=== PATIENT | male | born 1990 | race Caucasian/White ===

== ENCOUNTER → 2016-07-23 | Outpatient (CLI) | payer BC ==
[~2016-07-23] MED LIST: HYDR-971 PO; SULF1TAB24 PO
== END | disposition home or self-care (01) ==
LOC: PMGWOUND 13:50
PROVIDERS: ATTEND Preventive Medicine Undersea and Hyperbaric Medicine
DX: L97.811 Non-pressure chronic ulcer of other part of right lower leg limited to breakdown of skin (principal)
CPT/HCPCS: 99214

== ENCOUNTER → 2016-07-30 | Outpatient (CLI) | payer BC ==
--- NOTE | 2016-07-30 12:59 | RAD ---
Indication trauma. Injury. Pain. AP and lateral views of the right tibia and fibula were obtained. No bony abnormality is seen
== END | disposition home or self-care (01) ==
LOC: RAD 12:15
PROVIDERS: ATTEND Preventive Medicine Undersea and Hyperbaric Medicine
DX: S80.921A Unspecified superficial injury of right lower leg, initial encounter (principal); X58.XXXA Exposure to other specified factors, initial encounter; Y93.89 Activity, other specified; Y92.89 Other specified places as the place of occurrence of the external cause; Y99.8 Other external cause status
CPT/HCPCS: 73590

== ENCOUNTER → 2016-07-30 | Outpatient (CLI) | payer BC | END | disposition home or self-care (01) | LOC: PMGWOUND 11:23 | PROVIDERS: ATTEND Preventive Medicine Undersea and Hyperbaric Medicine | DX: L97.811 Non-pressure chronic ulcer of other part of right lower leg limited to breakdown of skin (principal) | CPT/HCPCS: 99213 ==

== ENCOUNTER 2016-08-08 18:41 | Emergency (ER) | payer BC ==
[~2016-08-08] VITALS: Ht 190.5 cm; Wt 148.8 kg
[2016-08-08 18:55] VITALS: BP 171/84
[2016-08-08] MEDS ORDERED: CLIN150C14 PO (19:10)
[2016-08-08] MEDS ORDERED: MUPI15CR TP (19:10)
--- NOTE | 2016-08-08 19:10 | PHYS DOC ---
Past Medical History Past Medical History: No Pertinent History Past Surgical History: No Surgical History Alcohol Use: None Drug Use: None Adult General Chief Complaint Chief Complaint: WOUND CHECK HPI HPI Patient is a 26 year old male who presents with right foot infection. Patient states last night he noted a laceration on his right foot. Patient states later on he developed redness around on the foot. Patient denies any known injury. He states he has history of a wound on the right galicia that he has been getting treatments for months through Dr. Ceron at the wound clinic. Patient is not on any antibiotics. Patient denies any fever. Review of Systems Review of Systems Constitutional: Denies fever or chills [] Eyes: Denies change in visual acuity, redness, or eye pain [] HENT: Denies nasal congestion or sore throat [] Integument: Right foot laceration and infection Neurologic: Denies headache, focal weakness or sensory changes [] Endocrine: Denies polyuria or polydipsia [] Allergies Allergies Allergies Coded Allergies Type Severity Reaction Last Updated Verified No Known Drug Allergies 02/27/13 No Physical Exam Physical Exam Constitutional: Well developed, well nourished, no acute distress, non-toxic appearance. [] HENT: Normocephalic, atraumatic, bilateral external ears normal, oropharynx moist, no oral exudates, nose normal. [] Eyes: PERRLA, EOMI, conjunctiva normal, no discharge. [] Neck: Normal range of motion, no tenderness, supple, no stridor. [] Cardiovascular:Heart rate regular rhythm, no murmur [] Lungs & Thorax: Bilateral breath sounds clear to auscultation [] Abdomen: Bowel sounds normal, soft, no tenderness, no masses, no pulsatile masses. [] Skin: On the top of the right foot patient has a superficial laceration approximately 2 cm long. There is surrounding mild cellulitis around the right foot. +2 right pedal pulse. +1 pedal edema. Cap refill less than 2 seconds the right foot. Patient has an old scabbed up wound on the proximal right galicia. Back: No tenderness, no CVA tenderness. [] Extremities: No tenderness, no cyanosis, no clubbing, ROM intact, no edema. [] Neurologic: Alert and oriented X 3, normal motor function, normal sensory function, no focal deficits noted. [] Psychologic: Affect normal, judgement normal, mood normal. [] EKG EKG [] Radiology/Procedures Radiology/Procedures [] Course & Med Decision Making Course & Med Decision Making Pertinent Labs and Imaging studies reviewed. (See chart for details) Patient is in the ED with right foot infection that began as a laceration yesterday. He does have cellulitis on the right foot. He was discharged with clindamycin and Bactroban cream. His tetanus is up-to-date. He does have another wound on the right galicia that he follows up with Dr. Ceron at the wound clinic. Instructed patient to contact the doctor's office on Thursday and schedule a follow-up appointment. Instructed to keep the affected area clean and dry. Provided return precautions and discharged in stable condition. Jannaon Disclaimer Tawanna Disclaimer This electronic medical record was generated, in whole or in part, using a voice recognition dictation system. Departure Departure Impression: Primary Impression: Cellulitis of right foot Additional Impression: Laceration of right foot Disposition: HOME, SELF-CARE Condition: STABLE Referrals: YOLANDA CERON MD (PCP) Contact Dr. Ceron and follow-up on Thursday Patient Instructions: Cellulitis, Laceration Care, Adult Additional Instructions: You were seen for laceration and cellulitis of the right foot. Ice and elevate the extremity. Take the prescribed antibiotics as ordered until completed. Follow-up with Dr. Ceron by calling the office on Thursday morning to get a follow-up appointment. Use the prescribed antibiotic cream as ordered. Scripts Mupirocin Calcium (BACTROBAN CREAM) 15 Gm Cream..g. 1 PATT TP TID, #30 GM Prov: ERIC MARINELLI APRN 08/08/16 Clindamycin Hcl (CLINDAMYCIN HCL) 150 Mg Capsule 3 CAP PO TID, #90 CAP Prov: ERIC MARINELLI APRN 08/08/16 Problem Qualifiers Additional Impression: Laceration of right foot Encounter type: initial encounter Qualified Codes: S91.311A - Laceration without foreign body, right foot, initial encounter ERIC MARINELLI APRN Aug 08, 2016 19:10
== END 2016-08-08 19:28 | disposition home or self-care (01) ==
LOC: ER 18:41
DX: S91.311A Laceration without foreign body, right foot, initial encounter (principal); L03.115 Cellulitis of right lower limb; Y28.8XXA Contact with other sharp object, undetermined intent, initial encounter; Y93.89 Activity, other specified; Y99.8 Other external cause status; Y92.89 Other specified places as the place of occurrence of the external cause
CPT/HCPCS: 99283

== ENCOUNTER → 2017-01-16 | Outpatient (CLI) | payer BC ==
[~2017-01-16] MED LIST changes: +CLIN150C14 PO; +MUPI15CR TP
== END | disposition home or self-care (01) ==
LOC: PMGWOUND 08:47
PROVIDERS: ATTEND Preventive Medicine Undersea and Hyperbaric Medicine
DX: S80.821A Blister (nonthermal), right lower leg, initial encounter (principal); X58.XXXA Exposure to other specified factors, initial encounter; Y93.89 Activity, other specified; Y92.89 Other specified places as the place of occurrence of the external cause; Y99.8 Other external cause status
CPT/HCPCS: 99213